=== PATIENT | female | born 1990 | race Caucasian/White ===

== ENCOUNTER 2017-06-28 14:08 | Emergency (ER) | payer BC, OTHER ==
[2017-06-28] MEDS ORDERED: KETOROLAC TROMETHAMINE INJ 30 MG/ML VIAL IM ONE (14:52)
--- NOTE | 2017-06-28 14:55 | ED.PDOC ---
History of Present Illness - General Chief Complaint: ENT Problem Stated Complaint: worsening sore throat Time Seen by Provider: 06/28/17 14:45 Source: patient Exam Limitations: no limitations - History of Present Illness Initial Comments: Patient presents with a sore throat for 4 days. She was diagnosed with strepotcoccal pharyngitis 4 days ago and started on amoxicillin. She says her sore throat has been getting worse. No other symptoms. Timing/Duration: other - 4 days Severity: moderate Improving Factors: nothing Worsening Factors: nothing Associated Symptoms: denies symptoms Allergies/Adverse Reactions: Allergies NO KNOWN ALLERGY Allergy (Verified 12/26/13 09:04) Home Medications: Ambulatory Orders Azithromycin [Zithromax Z-Earl] 1 ea PO DAILY #1 pack 06/28/17 Review of Systems - Review of Systems Constitutional: States: no symptoms reported EENTM: States: see HPI Respiratory: States: no symptoms reported Cardiology: States: no symptoms reported Gastrointestinal/Abdominal: States: no symptoms reported Genitourinary: States: no symptoms reported Musculoskeletal: States: no symptoms reported Skin: States: no symptoms reported Neurological: States: no symptoms reported Endocrine: States: no symptoms reported Hematologic/Lymphatic: States: no symptoms reported Past Medical History (General) - Patient Medical History Hx Seizures: No Hx Stroke: No Hx Dementia: No Hx Asthma: No Hx of COPD: No Hx Cardiac Disorders: No Hx Congestive Heart Failure: No Hx Pacemaker: No Hx Hypertension: No Hx Thyroid Disease: No Hx Diabetes: No Hx Gastroesophageal Reflux: No Hx Renal Disease: No Hx Cancer: No Hx of HIV: No Hx Hepatitis C: No Hx MRSA: No - Vaccination History Hx Tetanus, Diphtheria Vaccination: Yes Hx Influenza Vaccination: Yes Hx Pneumococcal Vaccination: No - Social History Hx Tobacco Use: Yes Hx Chewing Tobacco Use: No Hx Alcohol Use: No Hx Substance Use: No Hx Substance Use Treatment: No Hx Depression: No Hx Physical Abuse: No Hx Emotional Abuse: No Hx Suspected Abuse: No - Female History Patient is a Female of Child Bearing Age (10 -59 yrs old): Yes Patient : No Family Medical History - Family History Mother Living Status: Still Living Hx Family Diabetes: Yes Hx Family;Other: huntings disease Father Living Status: Still Living Hx Cardiac Disease: Yes - hyperlipidemia Physical Exam - Physical Exam General Appearance: Alert Ears, Nose, Throat: tonsillar swelling - tonsils 2+ Neck: lymphadenopathy (L) - left anterior cervical LAD. mobile, fluctuant, rubbery in consistency. less than 1 cm., other Respiratory: lungs clear Cardiovascular/Chest: normal peripheral pulses, regular rate, rhythm Gastrointestinal/Abdominal: normal bowel sounds, non tender, soft Skin Exam: normal color Progress - Progress Progress: 06/28/17 14:55 Toradol 30 mg IM x one. Departure - Departure Clinical Impression: Streptococcal sore throat Disposition: Discharge to Home or Self Care Condition: Good Departure Forms: ED Discharge - Pt. Copy, Patient Portal Self Enrollment Diet: resume usual diet Activity: increase activity as tolerated Referrals: Shekhar Cardoza MD [Primary Care Provider] - 1-2 Weeks Prescriptions: Azithromycin [Zithromax Z-Earl] 1 ea PO DAILY #1 pack Home Medications: Ambulatory Orders Azithromycin [Zithromax Z-Earl] 1 ea PO DAILY #1 pack 06/28/17 Additional Instructions: Increase oral fluids. You may use zinc containing throat lozenges for symptom relief. Tylenol or Motrin for pain or fever relief. You can also use over the counter cough and cold formulas. Return to the E.R. or your regular doctor if no improvement or worsening of symptoms.
[2017-06-28 18:27] VITALS: BP 111/68; TEMP 98.4; O2SAT 99
== END 2017-06-28 15:35 | disposition home or self-care (01) ==
LOC: ER 14:08
DX: J02.0 Streptococcal pharyngitis (principal); Z87.891 Personal history of nicotine dependence

== ENCOUNTER → 2017-09-21 | Outpatient (CLI) | payer OTHER | LOC: GMALS 14:59 | PROVIDERS: ATTEND Nurse Practitioner Acute Care | DX: E03.9 Hypothyroidism, unspecified (principal) ==

== ENCOUNTER → 2017-11-25 | Outpatient (CLI) | payer OTHER ==
--- NOTE | 2017-11-26 10:13 | US ---
History: Generalized abdominal pain. Right upper quadrant ultrasound: The liver is of normal size, shape and echogenicity. No intrahepatic ductal dilatation. Common duct is normal and measures 4 to 5 mm. The gallbladder is unremarkable. No stones, wall thickening or surrounding edema. Visualized pancreas, aorta and IVC are normal. The right kidney is unremarkable and measures 9.5 cm in length. IMPRESSION: Normal right upper quadrant sonography. Electronically signed by: Kimber Hardy MD 11/26/2017 10:11 AM CDT Workstation: [id number]
== END ==
LOC: US 10:42
PROVIDERS: ATTEND Family Medicine
DX: R10.84 Generalized abdominal pain (principal)

== ENCOUNTER → 2019-03-28 | Outpatient (CLI) | payer OTHER | LOC: GMAM 14:27 | PROVIDERS: ATTEND Family Medicine | DX: R00.2 Palpitations (principal) ==

== ENCOUNTER → 2019-04-05 | Outpatient (CLI) | payer BC, OTHER | LOC: RESP 11:17 | PROVIDERS: ATTEND Family Medicine | DX: R00.2 Palpitations (principal) ==